=== PATIENT | male | born 1980 | race Caucasian/White ===

== ENCOUNTER → 2018-11-01 | Outpatient (CLI) | payer OTHER ==
[~2018-11-01] MED LIST: FLEXERIL5 MG PO; TRAMADOL HCL50 MG PO; VICODIN ES 7501 TAB PO
[2018-11-02 20:08] LABS: HCV LOG10 7.076 (.); HEPATITIS C QNT See Final Results IU/mL (.)
== END | disposition home or self-care (01) ==
LOC: LAB 10:05
PROVIDERS: Internal Medicine
DX: B18.2 Chronic viral hepatitis C (principal)

== ENCOUNTER 2024-07-10 10:58 | Emergency (ER) | payer OTHER ==
[2024-07-10 11:35] LABS: BASO % 0.4 % (0.0-1.0); EOS # 0.1 10*3/uL (0.0-0.4); EOS % 0.9 % (1.0-4.0); HEMATOCRIT 48.3 % (42.0-52.0); MEAN CELL VOLUME 97.2 fl (80.0-94.0); MEAN PLATELET VOLUME 10.5 fl (9.6-12.3); MONO # 0.5 10*3/uL (0.1-1.0); MONO % 6.6 % (3.0-9.0); NEUT % 65.8 % (47.0-73.0); PLATELET COUNT AUTOMATED 235 10*3/uL (130-400); RED BLOOD COUNT 4.97 10*6/uL (4.50-5.90); RED CELL DISTRI WIDTH 12.6 % (0-14.5); WHITE BLOOD COUNT 7.6 10*3/uL (4.8-10.8)
[2024-07-10 12:07] LABS: BUN 17 mg/dl (9-23); CHLORIDE 99 mmol/L (98-107)
[2024-07-10] MEDS ORDERED: IOHEXOL 300 MG/ML 100 ML VIAL IV ONE (13:10)
[2024-07-10] MEDS ORDERED: MORPHINE Sulfate 2 MG/ML SYR IV ONE (15:10)
[2024-07-10] MEDS ORDERED: PERCOCET 5-3251 EACH PO (15:15)
== END 2024-07-10 15:39 | disposition home or self-care (01) ==
LOC: ED 10:58
PROVIDERS: Internal Medicine
DX: T14.8XXA Other injury of unspecified body region, initial encounter (principal); L72.0 Epidermal cyst; F32.A Depression, unspecified; F17.200 Nicotine dependence, unspecified, uncomplicated; X58.XXXA Exposure to other specified factors, initial encounter; Y93.89 Activity, other specified; Y92.89 Other specified places as the place of occurrence of the external cause; Y99.0 Civilian activity done for income or pay

== ENCOUNTER 2024-11-27 19:23 | Emergency (ER) | payer OTHER ==
[~2024-11-27] VITALS: Ht 177.8 cm; Wt 64.9 kg
[~2024-11-27 19:23] MED LIST changes: +PERCOCET 5-3251 EACH PO
[2024-11-27] MEDS ORDERED: AMOX-CLAV 875-1 EACH PO (19:46)
[2024-11-27] MEDS ORDERED: Amoxicillin/Clavulanate Pota 875 MG TAB PO ONE (19:50)
== END 2024-11-27 20:02 | disposition home or self-care (01) ==
LOC: ED 19:23
DX: H66.92 Otitis media, unspecified, left ear (principal); F17.200 Nicotine dependence, unspecified, uncomplicated; Z79.899 Other long term (current) drug therapy